=== PATIENT | male | born 1970 | race African-American/Black ===

== ENCOUNTER 2019-03-16 12:03 | Emergency (ER) | payer SELFPAY ==
[~2019-03-16] VITALS: Ht 180.3 cm; Wt 108.0 kg
[2019-03-16] MEDS ORDERED: KETOROLAC 30MG/ML VIAL IM ONE (13:00)
[2019-03-16 14:32] VITALS: BP 132/82
== END 2019-03-16 14:33 | disposition home or self-care (01) ==
LOC: ER 12:44
DX: M25.511 Pain in right shoulder (principal); M25.561 Pain in right knee; V43.52XA Car driver injured in collision with other type car in traffic accident, initial encounter; Y93.89 Activity, other specified; Y92.488 Other paved roadways as the place of occurrence of the external cause
CPT/HCPCS: 73030; 73562; 96372; 99283; J1885